=== PATIENT | female | born 1995 | race Caucasian/White ===

== ENCOUNTER 2022-08-25 06:07 | Observation (INO) | payer BC, SELFPAY ==
[2022-08-25] VITALS (12 sets, daily range): BP systolic 103–120; BP diastolic 71–85; PULSE 65–93
--- NOTE | ~2022-08-25 | US_ITS ---
EXAMINATION: US OB limited DATE: 08/25/2022 07:47 INDICATION: Vaginal bleeding during third trimester TECHNIQUE: Real-time ultrasound of the pelvis was performed. The interpreting radiologist was not pre sent for the study. COMPARISON: None. FINDINGS: There is a single living fetus in vertex presentation. The placenta is anterior. There are multiple hypoechoic areas within the placenta which measure up to 15 mm. The cervical length is 3.9 c m. cardiac activity and movement are noted. heart rate is 131 beats per minute (bpm ). The amniotic fluid index is subjectively normal. IMPRESSION: 1. Single living fetus in vertex presentation. 2. Hypoechoic areas in the placenta which likely reflect venous lakes. Reviewed, dictated and finalized at location [facility]
--- NOTE | 2022-08-25 08:38 | PM.OBTRLD ---
OB - Triage/Final Diagnosis Visit Information Date of evaluation: 08/25/22 Reason for evaluation: other (bleeding) Comments/Additional reasons for admission: I have assessed the risk for this patient, Celi Harmon, and determined that she would benefit from observation care. Evaluation Vital signs: Vital Signs - 24 hr 08/25/22 07:00 08/25/22 07:15 08/25/22 07:30 Pulse Rate 84 75 93 Blood Pressure 103/71 108/82 112/82 08/25/22 07:45 08/25/22 08:00 08/25/22 08:15 Pulse Rate 67 67 74 Blood Pressure 116/85 116/80 104/82 08/25/22 08:30 Pulse Rate 73 Blood Pressure 110/81
--- NOTE | 2022-08-25 13:53 | OBADM ---
This patient, Celi Harmon, admitted to the OB room Labor/Delivery/Recovery 108 for observation. Patient/family oriented to hospital policies and general routines including ID bracelet, bed and alarms, visiting hours, pain management, procedures, bathroom and other care routines, personal items, smoking policy, room service/diet, and visiting hours. Patient/Family are encouraged to report perceived risks to care and to ask questions if they do not understand what they are told or what they should do.
== END 2022-08-25 10:29 | disposition home or self-care (01) ==
PROVIDERS: Admitting Provider Obstetrics & Gynecology; Visit Provider Obstetrics & Gynecology
DX: O46.93 Antepartum hemorrhage, unspecified, third trimester (principal); Z3A.00 Weeks of gestation of pregnancy not specified
CPT/HCPCS: 76815; G0378; G0379

== ENCOUNTER 2022-08-25 17:40 | Inpatient (IN) | payer BC, SELFPAY ==
[2022-08-25] VITALS (49 sets, daily range): BP systolic 117–138; BP diastolic 70–103; PULSE 58–90; RESP 14–18; TEMP 36.4–36.6; O2SAT 97–100; BMI 28.6
--- NOTE | 2022-08-25 17:47 | PC.NURSE ---
Dr. Nayeli Jorgensen notified of pt heart tones in the s. en route.
--- NOTE | 2022-08-25 17:49 | PC.NURSE ---
Anesthesia notified of pt bleeding. Requesting presents on the unit.
[2022-08-25] MEDS: LACTATED RINGERS 250 ML 999 ML IVPB (17:51)
[2022-08-25 18:09] LABS: Basophils Percent Auto 0.3 % (0.2-1.2); Eosinophils Absolute Auto 0.1 K/mm3 (0-0.3); Eosinophils Percent Auto 1.3 % (0-4.4); Hematocrit 34.7 % (37.0-47.0); Hemoglobin 11.4 g/dL (12.0-15.0); Immature Granulocyte Absolute 0.04 K/mm3 (0.00-0.031); Immature Granulocyte Percent A 0.5 % (0-0.5); Lymphocytes Absolute Auto 1.84 K/mm3 (0.9-3.2); Lymphocytes Percent Auto 21.3 % (18.3-44.2); Mean Corpuscular HGB Conc 32.9 g/dl (32-36); Mean Corpuscular Volume 88.3 fl (80-100); Mean Platelet Volume 11.4 fl (7.4-10.4); Monocytes Absolute Auto 0.8 K/mm3 (0.1-0.6); Monocytes Percent Auto 9.7 % (2.6-8.5); Neutrophils Absolute Auto 5.8 K/mm3 (1.3-6.7); Neutrophils Percent Auto 66.9 % (45.5-73.1); Platelet Count Result 272 k/mm3 (150-375); Red Blood Count 3.93 M/mm3 (4.2-5.4); Red Cell Distribution Width 14.4 % (11.5-14.5); White Blood Count 8.6 K/mm3 (4.5-10.0)
--- NOTE | 2022-08-25 18:58 | P.HP_ITS ---
H&P: HPI History of Present Illness Date/Time: 08/25/22 18:58 Chief Complaint: Bleeding and contractions Narrative: this is 27 year 1 para 0 whose last menstrual period was 11/22/2021, EDC is 08/29/2022, presents at 39 weeks gestation with bleeding she was seen earlier with some spotting. She had reassuring heart tones the bleeding stops she had had sex relations the evening before. Ultrasound showed the baby to be vertex with the ultrasound sound showing no evidence of abruption and or other abnormalities. She was watched for several hours with reassuring heart tones and sent home she returned here and heart tones were found to be nonreassuring and I was called urgently. She was taken back to the back as I was driving in. IV fluids oxygen were given. [facility] Family History Family History Grandparent Diabetes mellitus Grandparent Diabetes mellitus Father Colon cancer Social History Social History Smoking status: Never smoker Alcohol intake: never Substance use: never Spiritual care concerns: No Meds Home Medications and Allergies Allergies Allergy/AdvReac Type Severity Reaction Status Date / Time No Known Allergies Allergy Verified 08/15/22 15:17 Vital Signs Vital Signs - 24 hr 08/25/22 17:49 08/25/22 17:50 08/25/22 17:55 Pulse Rate 67 Blood Pressure 138/87 Pulse Oximetry 100 100 Exam Const: General: comfortable, acute distress and well groomed Orientation/consciousness: oriented to person, oriented to place and oriented to time Chest: Chest palpation & inspection: normal inspection of the chest Cardio: Rate: regular rate Rhythm: regular rhythm Heart sounds: S1 normal heart sound present and S2 normal heart sound present GI: Inspection: normal to inspection ( The uterus is soft and gravid) : Speculum Exam - Vagina: normal appearance of the vagina and vaginal bleeding ( light vaginal bleeding seen. heart tones in the 70s and emergent C-) H&P: Results Labs Labs: Short CBC 08/25/22 Range/Units 17:59 WBC 8.6 (4.5-10.0) K/mm3 Hgb 11.4 L (12.0-15.0) g/dL Hct 34.7 L (37.0-47.0) % Plt Count 272 (150-375) k/mm3 Assessment and Plan Assessment and plan (1) Term : Code(s): Z34.90 - Encounter for supervision of normal , unspecified, unspecified trimester Status: Acute (2) Non-reassuring heart tones complicating , antepartum: Code(s): O36.8390 - Maternal care for abnormalities of the heart rate or rhythm, unspecified trimester, not applicable or unspecified Status: Acute (3) Bleeding: Code(s): R58 - Hemorrhage, not elsewhere classified Status: Acute Plan emergent section. The patient is typed and screened and prepared for transfusion. Peds was Called.
--- NOTE | 2022-08-25 19:13 | W.PM.PROC2 ---
Procedure Note - Detailed Date of Procedure 08/25/22 Pre-op Diagnosis Bleeding term / nonreassuring heart tones Post-op Diagnosis Same Procedure Performed emergent low-transverse section Surgeon Raphael Jorgensen MD Anesthesia General Indications a 27-year-old 1 para 0 at 39 weeks who was admitted with some bleeding and nonreassuring heart tones Findings male breech normal delivery and amniotic fluid anterior placenta with minimal blood present in the placenta. Nuchal cord loose x1 Description of Procedure the patient was admitted with vaginal bleeding and heart tones were in the 90s which dropped immediately to the 70s. I was not present in the hospital and was called emergently. Immediate resuscitation with fluids and oxygen was undertaken. An emergent was called. Upon my arrival patient was prepped draped placed in the supine position. Under excellent general is Anesthesia and was entered in Pfannenstiel fashion wrist layers of fascia fascia incised midline upward outward fashion. Underlying muscles per sharply dissected prior peritoneum L by Angela clamp. The peritoneum was entered by sharp dissection carried superiorly and inferiorly dome bladder bladder blade was placed bladder flap formed. A low-transverse incision made and a large amount of clear fluid was seen. The was noted to be in the ana breech position and was Prieb delivered the breech 1st the legs flexed to the midline the arms flexed medially and the head delivered and the flexed position. Cord clamped x2 and cut immediately passed off the table placenta delivered intact manually and uterus with the abdomen wrapped in moist towel. The placenta did not look abnormal. And once the uterus was cleared any membranes or debris, uterus closed with continuous running Vicryl from edge to edge. Cyst followed by imbricating layer from edge to edge hemostasis was assured uterus ovaries and tubes appeared within normal limits a small 1cm fibroid was seen at the fundus. The uterus returned to the abdomen blood loss quantified. Laps removed and accounted for after inspecting the incision last time. Incisions on the fascia closed with continuous running 0 Vicryl from lateral edge to midline bilaterally skin closed with 4 Monocryl and glue. Blood loss was in the 400cc range although this was difficult due to the large amount of amniotic fluid. All sponge, needle, instrument counts were correct. The baby was undergoing resuscitation during the time of closure. Estimated Blood Loss 355 Urine Output 300 Drains No Packing No Pathology Yes ( Placenta) Complications No immediate complications Condition Stable Disposition PACU
[2022-08-25 19:14] LABS: Basophils Percent Auto 0.3 % (0.2-1.2); Eosinophils Absolute Auto 0.1 K/mm3 (0-0.3); Eosinophils Percent Auto 0.9 % (0-4.4); Hematocrit 32.9 % (37.0-47.0); Hemoglobin 10.6 g/dL (12.0-15.0); Immature Granulocyte Absolute 0.07 K/mm3 (0.00-0.031); Immature Granulocyte Percent A 0.8 % (0-0.5); Lymphocytes Absolute Auto 1.97 K/mm3 (0.9-3.2); Lymphocytes Percent Auto 21.6 % (18.3-44.2); Mean Corpuscular HGB Conc 32.2 g/dl (32-36); Mean Corpuscular Hemoglobin 28.4 pg (26-34); Mean Corpuscular Volume 88.2 fl (80-100); Mean Platelet Volume 11.1 fl (7.4-10.4); Monocytes Absolute Auto 0.8 K/mm3 (0.1-0.6); Monocytes Percent Auto 8.3 % (2.6-8.5); Neutrophils Absolute Auto 6.2 K/mm3 (1.3-6.7); Neutrophils Percent Auto 68.1 % (45.5-73.1); Platelet Count Result 219 k/mm3 (150-375); Red Blood Count 3.73 M/mm3 (4.2-5.4); Red Cell Distribution Width 14.5 % (11.5-14.5); White Blood Count 9.1 K/mm3 (4.5-10.0)
--- NOTE | 2022-08-25 19:30 | WPDANESEPPF ---
Anes - Initial Pre Proc Eval Procedure: Operation Date: 08/25/22 18:00 Proposed Procedures p Section - Raphael Jorgensen MD Date/Time: 08/25/22 19:30 Surgeon: Hair Cox MD Pre Op Diagnosis: Non reassuring FHT Pre Op Diagnosis: Bleeding Patient Data Age: 27 Gender: F Height: Weight: Last Vital Signs Pulse 74 08/25/22 19:16 BP 121/75 08/25/22 19:16 Pulse Ox 99 08/25/22 19:29 Allergies Allergy/AdvReac Type Severity Reaction Status Date / Time No Known Allergies Allergy Verified 08/15/22 15:17 Laboratory Tests 08/25/22 08/25/22 08/25/22 17:59 17:59 17:59 WBC 8.6 K/mm3 K/mm3 (4.5-10.0) RBC 3.93 M/mm3 L M/mm3 (4.2-5.4) Hgb 11.4 g/dL L g/dL (12.0-15.0) Hct 34.7 % L % (37.0-47.0) MCV 88.3 fl fl (80-100) MCH 29.0 pg pg (26-34) MCHC 32.9 g/dl g/dl (32-36) RDW 14.4 % % (11.5-14.5) Plt Count 272 k/mm3 k/mm3 (150-375) MPV 11.4 fl H fl (7.4-10.4) Immature Gran % (Auto) 0.5 % % (0-0.5) Neut % (Auto) 66.9 % % (45.5-73.1) Lymph % (Auto) 21.3 % % (18.3-44.2) [place] % (Auto) 9.7 % H % (2.6-8.5) Eos % (Auto) 1.3 % % (0-4.4) Baso % (Auto) 0.3 % % (0.2-1.2) Lymph # (Auto) 1.84 K/mm3 K/mm3 (0.9-3.2) [place] # (Auto) 0.8 K/mm3 H K/mm3 (0.1-0.6) Eos # (Auto) 0.1 K/mm3 K/mm3 (0-0.3) Baso # (Auto) 0.0 K/mm3 K/mm3 (0.0-0.1) Abs Immat Gran (auto) 0.04 K/mm3 H K/mm3 (0.00-0.031) Absolute Neuts (auto) 5.8 K/mm3 K/mm3 (1.3-6.7) Absolute Nucleated RBC 0.0 K/mm3 K/mm3 (0.0-0.012) Nucleated RBC % 0.0 % % (0.0-0.2) RPR Pending Blood Type O Positive Antibody Screen Negative 08/25/22 08/25/22 17:59 19:04 WBC 9.1 K/mm3 K/mm3 (4.5-10.0) RBC 3.73 M/mm3 L M/mm3 (4.2-5.4) Hgb 10.6 g/dL L g/dL (12.0-15.0) Hct 32.9 % L % (37.0-47.0) MCV 88.2 fl fl (80-100) MCH 28.4 pg pg (26-34) MCHC 32.2 g/dl g/dl (32-36) RDW 14.5 % % (11.5-14.5) Plt Count 219 k/mm3 k/mm3 (150-375) MPV 11.1 fl H fl (7.4-10.4) Immature Gran % (Auto) 0.8 % H % (0-0.5) Neut % (Auto) 68.1 % % (45.5-73.1) Lymph % (Auto) 21.6 % % (18.3-44.2) [place] % (Auto) 8.3 % % (2.6-8.5) Eos % (Auto) 0.9 % % (0-4.4) Baso % (Auto) 0.3 % % (0.2-1.2) Lymph # (Auto) 1.97 K/mm3 K/mm3 (0.9-3.2) [place] # (Auto) 0.8 K/mm3 H K/mm3 (0.1-0.6) Eos # (Auto) 0.1 K/mm3 K/mm3 (0-0.3) Baso # (Auto) 0.0 K/mm3 K/mm3 (0.0-0.1) Abs Immat Gran (auto) 0.07 K/mm3 H K/mm3 (0.00-0.031) Absolute Neuts (auto) 6.2 K/mm3 K/mm3 (1.3-6.7) Absolute Nucleated RBC 0.0 K/mm3 K/mm3 (0.0-0.012) Nucleated RBC % 0.0 % % (0.0-0.2) RPR Blood Type Cancelled Antibody Screen Cancelled Patient hx anesthesia problems: none Family hx anesthesia problems: none Prior surgeries: None Results Review: All pre-operative results and documents have been reviewed as part of the pre-operative evaluation. [facility] Family History Family History Grandparent Diabetes mellitus Grandparent Diabetes mellitus Father Colon cancer Social History Social History Smoking status: Never smoker Alcohol intake: never Substance use: never Spiritual care concerns: No Anes - Eval Final PreProcedure Day of Procedure 08/25/22 19:30 Patient weight: normal Heart: regular rate and rhythm Lungs: clear to auscultation Airway: Mallampati scale class 1 Neurological: alert and oriented Last oral intake: 4 hours ASA classification: I Em
--- NOTE | 2022-08-25 19:47 | LDADM ---
This patient, Celi Harmon, was admitted to Labor/Delivery/Recovery 107 on 08/25/22 at 17:40. Plans for labor, pain management and were discussed with patient. Patient/family oriented to hospital policies and general routines including ID bracelet, bed and alarms, visiting hours, pain management, procedures, bathroom and other care routines, personal items, smoking policy, room service/diet and guest tray routines, infant security routines, and visiting hours. Patient/Family are encouraged to report perceived risks to care and to ask questions if they do not understand what they are told or what they should do. See OBIX for further documentation.
[2022-08-25] MEDS: OXYTOCIN 30 UNITS/NS 500 ML 30 UNITS/500 ML BAG 125 UNITS IV CONT (20:15)
[2022-08-25] MEDS: MORPHINE SULFATE PCA (*CRX) 30 MG/30 ML SYR IV CONT ×2 (21:02→22:21)
--- NOTE | 2022-08-25 21:35 | OBPPTRN ---
Patient transferred to post room #281 via stretcher. Support person present. Oriented to unit, room, information board, rooming in, admission packet and security measures. Patient verbalizes understanding.
--- NOTE | 2022-08-25 22:21 | PC.NURSE ---
Morphine DISMANTLER order accidentally cancelled upon transfer of orders to unit. New DISMANTLER order entered, same morphine DISMANTLER syringe running that was started down in labor and delivery.
[2022-08-26] VITALS (14 sets, daily range): BP systolic 58–117; BP diastolic 36–79; PULSE 66–87; RESP 16–18; TEMP 36.7–37.2; O2SAT 97–100
[2022-08-26] MEDS: DEXTROSE 5%/0.45% SOD CHL 1,000 ML 125 ML IV CONT ×2 (04:30→20:52)
[2022-08-26 06:19] LABS: Basophils Percent Auto 0.2 % (0.2-1.2); Eosinophils Percent Auto 0.1 % (0-4.4); Hematocrit 31.5 % (37.0-47.0); Hemoglobin 10.3 g/dL (12.0-15.0); Immature Granulocyte Absolute 0.08 K/mm3 (0.00-0.031); Immature Granulocyte Percent A 0.5 % (0-0.5); Lymphocytes Absolute Auto 1.32 K/mm3 (0.9-3.2); Lymphocytes Percent Auto 7.8 % (18.3-44.2); Mean Corpuscular HGB Conc 32.7 g/dl (32-36); Mean Corpuscular Hemoglobin 28.2 pg (26-34); Mean Corpuscular Volume 86.3 fl (80-100); Mean Platelet Volume 11.5 fl (7.4-10.4); Monocytes Percent Auto 5.9 % (2.6-8.5); Neutrophils Absolute Auto 14.6 K/mm3 (1.3-6.7); Neutrophils Percent Auto 85.5 % (45.5-73.1); Platelet Count Result 234 k/mm3 (150-375); Red Blood Count 3.65 M/mm3 (4.2-5.4); Red Cell Distribution Width 14.3 % (11.5-14.5)
--- NOTE | 2022-08-26 07:24 | PM.OBPNVD ---
OB - PN: Subj Subjective Date/time seen: 08/26/22 07:24 Patient comments: no complaints and pain well controlled baby status: doing well OB - PN: Obj Data Labs 08/26/22 04:53 Labs: Laboratory Results - last 24 hr 08/25/22 08/25/22 08/25/22 17:59 17:59 17:59 WBC 8.6 RBC 3.93 L Hgb 11.4 L Hct 34.7 L MCV 88.3 MCH 29.0 MCHC 32.9 RDW 14.4 Plt Count 272 MPV 11.4 H Immature Gran % (Auto) 0.5 Neut % (Auto) 66.9 Lymph % (Auto) 21.3 [place] % (Auto) 9.7 H Eos % (Auto) 1.3 Baso % (Auto) 0.3 Lymph # (Auto) 1.84 [place] # (Auto) 0.8 H Eos # (Auto) 0.1 Baso # (Auto) 0.0 Abs Immat Gran (auto) 0.04 H Absolute Neuts (auto) 5.8 Absolute Nucleated RBC 0.0 Nucleated RBC % 0.0 Blood Type O Positive Cancelled Antibody Screen Negative Cancelled 08/25/22 08/26/22 19:04 04:53 WBC 9.1 17.0 H RBC 3.73 L 3.65 L Hgb 10.6 L 10.3 L Hct 32.9 L 31.5 L MCV 88.2 86.3 MCH 28.4 28.2 MCHC 32.2 32.7 RDW 14.5 14.3 Plt Count 219 234 MPV 11.1 H 11.5 H Immature Gran % (Auto) 0.8 H 0.5 Neut % (Auto) 68.1 85.5 H Lymph % (Auto) 21.6 7.8 L [place] % (Auto) 8.3 5.9 Eos % (Auto) 0.9 0.1 Baso % (Auto) 0.3 0.2 Lymph # (Auto) 1.97 1.32 [place] # (Auto) 0.8 H 1.0 H Eos # (Auto) 0.1 0.0 Baso # (Auto) 0.0 0.0 Abs Immat Gran (auto) 0.07 H 0.08 H Absolute Neuts (auto) 6.2 14.6 H Absolute Nucleated RBC 0.0 0.0 Nucleated RBC % 0.0 0.0 Blood Type Antibody Screen OB - PN A/P Plan day: 1 Plan: routine care Time Spent With Patient Time: Total time spent is greater than 50% in coordination of care (as documented) at patient's floor/unit and/or counseling patient: Time with patient: less than 15 minutes Exam Const: General: cooperative, healthy appearing and comfortable Orientation/consciousness: oriented to person, oriented to place and oriented to time Resp: Effort & Inspection: normal respiratory effort
[2022-08-26] MEDS: DOCUSATE SODIUM 100 MG CAPSULE PO (11:26)
[2022-08-26] MEDS: SIMETHICONE 80 MG TAB.CHEW PO ×2 (11:26→15:39)
[2022-08-26] MEDS: HYDROcodone/acetaminophen (*CRX) 10-325 MG TABLET 1 TAB PO ×2 (11:26→15:39)
[2022-08-26] MEDS: BISACODYL 10 MG SUPPOSITORY RECTAL (11:27)
[2022-08-26] MEDS: KCL 20 MEQ/D5/0.45% SOD CHL 1,000 ML 125 ML IV CONT (13:15)
--- NOTE | 2022-08-26 13:54 | PC.NURSE ---
1300 Patient up to the chair with 3 RN's @ bedside (Efren Vazquez, Linda Rogers) 1306 Patient feeling dizzy, ears ringing, nauseous, pale. Cool rag applied to back of neck and ammonia salts used. BP 58/36, pulse 76 1312 Patient feeling better, symptoms improved. Patient back to bed. BP 103/58, pulse 87 1315 IV fluids restarted (D5 1/2 NS w/ KCl @ 125). Pt doing well. 1330 Patient feeling better, no nausea and wants to eat her lunch. Pain OK. BP 100/62, pulse 68 1343 LM on Dolos[employer] voicemail to update him on patient.
[2022-08-26] MEDS: IBUPROFEN SUSPENSION 200 MG/10 ML UDC 600 MG PO (15:39)
--- NOTE | 2022-08-26 18:27 | PC.NURSE ---
1754 Patient had been up in a chair since 1734, was doing well and then started to feel nauseous and looking pale. Moved her back to bed. Will notify
[2022-08-26 18:41] LABS: Hematocrit 31.5 % (37.0-47.0)
[2022-08-27] MEDS: HYDROcodone/acetaminophen (*CRX) 5-325 MG TABLET 1 TAB PO ×3 (00:59→16:34)
[2022-08-27] MEDS: IBUPROFEN SUSPENSION 200 MG/10 ML UDC 600 MG PO ×2 (00:59→09:14)
[2022-08-27] MEDS: SIMETHICONE 80 MG TAB.CHEW PO (00:59)
[2022-08-27] MEDS: ONDANSETRON INJ 4 MG/2 ML VIAL IV PUSH (01:08)
[2022-08-27 04:30] VITALS: BP 105/71; PULSE 72; RESP 18; O2SAT 98
[2022-08-27 05:43] LABS: Basophils Percent Auto 0.3 % (0.2-1.2); Eosinophils Percent Auto 0.1 % (0-4.4); Hematocrit 31.2 % (37.0-47.0); Hemoglobin 9.8 g/dL (12.0-15.0); Immature Granulocyte Absolute 0.08 K/mm3 (0.00-0.031); Immature Granulocyte Percent A 0.5 % (0-0.5); Lymphocytes Absolute Auto 1.19 K/mm3 (0.9-3.2); Lymphocytes Percent Auto 7.6 % (18.3-44.2); Mean Corpuscular HGB Conc 31.4 g/dl (32-36); Mean Corpuscular Hemoglobin 27.9 pg (26-34); Mean Corpuscular Volume 88.9 fl (80-100); Mean Platelet Volume 11.3 fl (7.4-10.4); Monocytes Absolute Auto 0.8 K/mm3 (0.1-0.6); Monocytes Percent Auto 5.2 % (2.6-8.5); Neutrophils Absolute Auto 13.5 K/mm3 (1.3-6.7); Neutrophils Percent Auto 86.3 % (45.5-73.1); Platelet Count Result 260 k/mm3 (150-375); Red Blood Count 3.51 M/mm3 (4.2-5.4); Red Cell Distribution Width 14.9 % (11.5-14.5); White Blood Count 15.7 K/mm3 (4.5-10.0)
[2022-08-27 07:30] VITALS: BP 94/62; PULSE 84; RESP 16; TEMP 37.1; O2SAT 100
--- NOTE | 2022-08-27 07:39 | P.PNOB_ITS ---
OB - PN: Subj Subjective Date/time seen: 08/27/22 07:39 Interval history: was light headed Patient comments: no complaints and pain well controlled OB - PN: Obj Data Labs 08/27/22 04:32 Labs: Laboratory Results - last 24 hr 08/26/22 08/27/22 18:29 04:32 WBC 15.7 H RBC 3.51 L Hgb 10.0 L 9.8 L Hct 31.5 L 31.2 L MCV 88.9 MCH 27.9 MCHC 31.4 L RDW 14.9 H Plt Count 260 MPV 11.3 H Immature Gran % (Auto) 0.5 Neut % (Auto) 86.3 H Lymph % (Auto) 7.6 L [place] % (Auto) 5.2 Eos % (Auto) 0.1 Baso % (Auto) 0.3 Lymph # (Auto) 1.19 [place] # (Auto) 0.8 H Eos # (Auto) 0.0 Baso # (Auto) 0.0 Abs Immat Gran (auto) 0.08 H Absolute Neuts (auto) 13.5 H Absolute Nucleated RBC 0.0 Nucleated RBC % 0.0 OB - PN A/P Plan day: 2 Plan: routine care Comments: pass to see baby Time Spent With Patient Time: Total time spent is greater than 50% in coordination of care (as documented) at patient's floor/unit and/or counseling patient: Time with patient: less than 15 minutes Exam Const: General: cooperative, healthy appearing and comfortable Nutritional Appearance: average body habitus Orientation/consciousness: oriented to person, oriented to place and oriented to time Resp: Effort & Inspection: normal respiratory effort Cardio: Rate: regular rate Rhythm: regular rhythm Heart sounds: S1 normal heart sound present and S2 normal heart sound present GI: Inspection: normal to inspection and incision (cdi)
[2022-08-27] MEDS: DOCUSATE SODIUM 100 MG CAPSULE PO ×2 (08:25→16:34)
[2022-08-27] MEDS: POLYSACCHARIDE IRON COMPLEX 150 MG CAPSULE PO ×2 (08:25→16:35)
[2022-08-27 09:16] LABS: Rapid Plasma Reagin Non-Reactive (NonReactive)
--- NOTE | 2022-08-27 10:40 | PC.NURSE ---
Pt. left on pass to visit baby.
[2022-08-27 14:30] VITALS: BP 117/76; PULSE 78; RESP 16; TEMP 36.8; O2SAT 99
[2022-08-27 20:26] VITALS: PULSE 70; RESP 18; O2SAT 99
[2022-08-28] MEDS: HYDROcodone/acetaminophen (*CRX) 5-325 MG TABLET 1 TAB PO (07:45)
[2022-08-28] MEDS: POLYSACCHARIDE IRON COMPLEX 150 MG CAPSULE PO (07:45)
[2022-08-28] MEDS: DOCUSATE SODIUM 100 MG CAPSULE PO (07:45)
[2022-08-28] MEDS: TETANUS,DIPHTHERIA,AC PERTUSSIS ADULT (0.5 ML) BOOSTRIX IM (07:46)
--- NOTE | 2022-08-28 07:55 | P.DS_ITS ---
DS: Admitting Diagnosis Discharge Date 08/28/2022 Admitting Diagnosis Term with distress DS: Discharge Diagnosis Discharge Diagnosis (1) Bleeding: Code(s): R58 - Hemorrhage, not elsewhere classified Status: Acute (2) Non-reassuring heart tones complicating , antepartum: Code(s): O36.8390 - Maternal care for abnormalities of the heart rate or rhythm, unspecified trimester, not applicable or unspecified Status: Acute (3) Term : Code(s): Z34.90 - Encounter for supervision of normal , unspecified, unspecified trimester Status: Acute DS: Summary Hospital Course Reason for hospitalization: Vaginal bleeding and labor at term Hospital Course: A 27-year-old female who was admitted at 39. weeks gestation with bleeding. heart tones were noted to be low and immediate section was called. She underwent emergent low-transverse section. The baby was resuscitated and transferred to [facility]. Her hospital course was unremarkable. She remained afebrile. She was up, voiding without difficulty, ambulating, generally without complaints. Time Spent with Patient Time attestation: Total time spent providing and/or coordinating discharge services: Exam Const: General: cooperative, healthy appearing and comfortable Nutritional Appearance: average body habitus Orientation/consciousness: oriented to person, oriented to place and oriented to time HENMT: Head: normal to inspection Resp: Effort & Inspection: normal respiratory effort GI: Inspection: normal to inspection and incision (Wound is clean dry and intact) DS: Data Data Completed and Pending Labs on day of discharge: Labs from last 24 hours 08/25/22 17:59 RPR Non-reactive Discharge Plan Discharge Attending physician on discharge: Raphael Patel Discharging Clinician: Raphael Patel Patient Disposition: Home, Self-Care Activity: may shower, no straining and pelvic rest Diet: heart healthy Wound Care Instructions: follow printed instructions Patient Instructions: Antibiotic Form Stand Alone Forms: General Discharge Information Follow-up/Referrals: Raphael Patel MD [Physician] - Discharge Medications: New hydrocodone-acetaminophen 5-325 mg tablet 1 tablet PO Q4H PRN (Reason: pain) Qty: 20 0RF Date of admission: 08/25/22 17:40 Primary Care Provider: PHYSICIAN,[employer]PERVISOR Admitting Provider: Hair Cox Attending physician on admission: Hair Cox Condition: Stable
[2022-08-28 08:00] VITALS: BP 117/85; PULSE 87; RESP 16; TEMP 36.7; O2SAT 100
--- NOTE | 2022-08-28 08:00 | PM.OBPNVD ---
OB - PN: Subj Subjective Date/time seen: 08/28/22 08:00 Interval history: was light headed Patient comments: no complaints, pain well controlled and other (Appears emotionally stable) OB - PN: Obj Data Labs 08/27/22 04:32 Labs: Laboratory Results - last 24 hr 08/25/22 17:59 RPR Non-reactive OB - PN A/P Plan day: 3 Plan: routine care, discharge home and follow up 6 weeks (One week) Time Spent With Patient Time: Total time spent is greater than 50% in coordination of care (as documented) at patient's floor/unit and/or counseling patient: Time with patient: less than 15 minutes
--- NOTE | 2022-08-28 11:51 | PC.NURSE ---
Patient viewed the discharge video Mother & Baby Care, The First Two Weeks . Patient was given the opportunity and encouraged to ask questions. Patient verbalized understanding of information shared and has been given the mother/baby guide for home reference.
== END 2022-08-28 12:30 | disposition home or self-care (01) | DRG 788 ==
LOC: ANHOB2 08-28 11:59 → ANHLDR 08-29 10:59 → ANHOB2 08-29 10:59
PROVIDERS: Admitting Provider Obstetrics & Gynecology; Visit Provider Obstetrics & Gynecology
PROC: 10D00Z1 Extraction of Products of Conception, Low, Open Approach (ICD-10-PCS; CPT 59514; principal; 2022-08-25 18:00)
DX: O76 Abnormality in fetal heart rate and rhythm complicating labor and delivery (principal); O67.8 Other intrapartum hemorrhage; O69.81X0 Labor and delivery complicated by cord around neck, without compression, not applicable or unspecified; O32.1XX0 Maternal care for breech presentation, not applicable or unspecified; Z3A.39 39 weeks gestation of pregnancy; Z37.0 Single live birth; Z23 Encounter for immunization
CPT/HCPCS: 36415; 85014; 85018; 85025; 86592; 86850; 86900; 86901; 90471; 90686; 90715; A9270; G0008; J0690; J2210; J2250; J2270; J2274; J2405; J2590; J3010; J3480; J7120

== ENCOUNTER 2024-06-23 16:38 | Outpatient (CLI) | payer BC, SELFPAY ==
[2024-06-23 17:03] VITALS: BP 109/67; PULSE 88
[2024-06-23 17:04] VITALS: BP 109/67; PULSE 80; RESP 16; TEMP 36.8
[2024-06-23 17:15] VITALS: BP 98/59; PULSE 82
--- NOTE | 2024-06-23 17:27 | PC.NURSE ---
Dr. Cox returned page and informed this 24 wk pt c/o sitting down on toilet and having a gush of fluid before releasing her urine and it felt different from when she purposefully voided. ROM plus was negative. No vaginal bleeding, no contractions, FHT's reactive with 15 beat accels. OK to discharge to home.
[2024-06-23 17:28] VITALS: BP 98/59; PULSE 83
[2024-06-23 18:09] LABS: OBXCEM ROM Plus Negative (Negative)
== END 2024-06-23 17:32 | disposition home or self-care (01) ==
LOC: ANHOBOP 16:49 → ANHOBPP 16:49
PROVIDERS: Visit Provider Obstetrics & Gynecology
DX: O42.90 Premature rupture of membranes, unspecified as to length of time between rupture and onset of labor, unspecified weeks of gestation (principal); Z3A.00 Weeks of gestation of pregnancy not specified
CPT/HCPCS: 59025; 84112; 99199

== ENCOUNTER 2024-10-01 12:41 | Outpatient (RCR) | payer BC, SELFPAY ==
[2024-10-01 14:00] VITALS: BP 110/72; PULSE 85
== END 2024-11-06 16:45 | disposition home or self-care (01) ==
LOC: ANHOBOP 12:41
PROVIDERS: Visit Provider Obstetrics & Gynecology
DX: O36.8190 Decreased fetal movements, unspecified trimester, not applicable or unspecified (principal)
CPT/HCPCS: 59025

== ENCOUNTER 2024-10-05 09:49 | Inpatient (IN) | payer BC, SELFPAY ==
[2024-10-05] VITALS (54 sets, daily range): BP systolic 81–114; BP diastolic 56–80; PULSE 63–119; RESP 16–18; TEMP 36.2–36.4; O2SAT 97–100
[2024-10-05] MEDS: ACETAMINOPHEN 500 MG TABLET 1000 MG PO (10:33)
[2024-10-05] MEDS: LACTATED RINGERS 1,000 ML 125 ML IV CONT ×2 (10:45→11:33)
--- NOTE | 2024-10-05 10:47 | LDADM ---
This patient, Celi Harmon, was admitted to Labor/Delivery/Recovery 120 on 10/05/24 at 09:49. Plans for labor, pain management and were discussed with patient. Patient/family oriented to hospital policies and general routines including ID bracelet, bed and alarms, visiting hours, pain management, procedures, bathroom and other care routines, personal items, smoking policy, room service/diet and guest tray routines, infant security routines, and visiting hours. Patient/Family are encouraged to report perceived risks to care and to ask questions if they do not understand what they are told or what they should do. See OBIX for further documentation.
[2024-10-05] MEDS: ONDANSETRON INJ 4 MG/2 ML VIAL IV PUSH (11:33)
[2024-10-05] MEDS: FAMOTIDINE 20 MG/2 ML VIAL IV PUSH (11:34)
--- NOTE | 2024-10-05 11:35 | PM.IMHP ---
H&P: HPI History of Present Illness Date/Time: 10/05/24 11:35 Chief Complaint: Scheduled c section Narrative: 29 y/o at 39 2/7 weeks gestation with prior , desiring repeat. Also desires permanent contraception with tubal sterilization. GBS neg. Review of Systems Review of Systems: All systems reviewed & are unremarkable except as noted in HPI and below PMFSH Past Medical History Medical History (Updated 10/05/24 @ 11:38 by Hair Cox MD) Cystic fibrosis carrier Surgical History Surgical History (Updated 10/05/24 @ 11:38 by Hair Cox MD) History of delivery Family History Family History Grandparent Diabetes mellitus Grandparent Diabetes mellitus Father Colon cancer Mother Breast cancer Grandparent Breast cancer Social History Social History Smoking status: Former smoker Second hand tobacco smoke exposure: No Alcohol intake: never Substance use: never Do You Feel Safe in your Home?: Yes Lack of Transportation: No Lack of Food: Never True Current Housing: I Have Housing Concerned About Future Housing: No Difficulty Paying Gas/Electric Bills: No Difficulty Paying for Meds: No Currently Unemployed: No Education: Master's Degree or Higher Difficulty w/ Childcare or Family Care: No Spiritual care concerns: No Meds Home Medications and Allergies Home Medications ?Medication ?Instructions ?Recorded ?Confirmed ?Type vit no.95-ferrous 1 tablet PO DAILY 06/23/24 10/01/24 History fumarate 28 mg-folic acid 800 mcg tablet () Allergies Allergy/AdvReac Type Severity Reaction Status Date / Time No Known Allergies Allergy Verified 10/01/24 15:30 Vital Signs Vital Signs - 24 hr 10/05/24 10:15 10/05/24 10:30 10/05/24 10:43 Pulse Rate 83 92 Blood Pressure 100/72 103/74 Oxygen Delivery Room Air 10/05/24 10:45 10/05/24 11:00 10/05/24 11:15 Pulse Rate 82 80 77 Blood Pressure 104/73 106/71 114/70 Oxygen Delivery 10/05/24 11:30 Pulse Rate 82 Blood Pressure 109/72 Oxygen Delivery Exam Const: Orientation/consciousness: patient oriented x3 Other: Well-developed, well-nourished female in no acute distress. Neck: Thyroid: thyroid normal Lymphatic: no lymphadenopathy noted (in neck, axilla or inguinal nodes) Resp: Effort & Inspection: normal respiratory effort Auscultation: clear to auscultation bilaterally Cardio: Rate: regular rate Rhythm: regular rhythm Heart sounds: S1 normal heart sound present and S2 normal heart sound present GI: Other: ABD: Soft, nontender, nondistended, gravid. NST reactive. TOCO: no contractions. No guarding or rebound tenderness. No hepatosplenomegaly. : General: Yes no CVA tenderness Other: Cervix closed, thick Back/Spine/Pelvis: Back: no CVA tenderness Skin: General skin exam: normal color and no rashes or lesions noted Neuro: General: patient oriented x3 Extrem: Other: Extremities: nontender with no edema Psych: Mental Status: mental status grossly normal Affect: normal affect Assessment and Plan Assessment and plan (1) History of delivery: Code(s): Z98.891 - History of uterine scar from previous surgery Status: Acute Assessment and Plan: A: IUP at 39 2/7 weeks with prior , desiring repeat. Desired sterility. P: Offered repeat with concurrent bilateral tubal sterilization. She understands there are temporary methods of contraception available to her. She understands that there are nonsurgical options as well as surgical options. She understands that tubal ligation will render her permanently sterile. She understands that there is a failure rate associated with tubal sterilization, as well as an inherent ectopic gestation risk. Furthermore, she understands risks of surgery to include risks of anesthesia, risks of pain, infection, bleeding, blood products, thromboembolic phenomena and damage to adjacent structures such as bowel, bladder, ureters, blood vessels and nerves. She understands all these risks and elects to proceed with surgery. (2) Term : Code(s): Z34.90 - Encounter for supervision of normal , unspecified, unspecified trimester Status: Acute (3) Unwanted fertility: Code(s): Z30.09 - Encounter for other general counseling and advice on contraception Status: Acute
--- NOTE | 2024-10-05 11:39 | WPDHPUPDATE1 ---
History and Physical Update Update Date/Time: 10/05/24 11:39 History and Physical has been reviewed, including an updated exam of the patient. There are NO changes in the patient's condition. Risks, benefits, and alternatives have been discussed and questions answered. Patient agrees to proceed with procedure.
[2024-10-05] MEDS: ceFAZolin 2 GM/D5W 50 ML 2 GM/50 ML BAG IVPB (11:50)
--- NOTE | 2024-10-05 11:50 | P.PNAN_ITS ---
Anes - Initial Pre Proc Eval Procedure: Operation Date: 10/05/24 12:00 Proposed Procedures p Repeat Section with Bilateral Tubal Ligation - Hair Cox MD Date/Time: 10/05/24 11:50 Surgeon: Hair Cox MD Pre Op Diagnosis: CSECTION Patient Data Age: 29 Gender: F Height: 1.63 m Weight: 79.5 kg Last Vital Signs Pulse 82 10/05/24 11:30 BP 109/72 10/05/24 11:30 O2 Del Method Room Air 10/05/24 10:43 Allergies Allergy/AdvReac Type Severity Reaction Status Date / Time No Known Allergies Allergy Verified 10/01/24 15:30 Home Medications ?Medication ?Instructions ?Recorded ?Confirmed ?Type vit no.95-ferrous 1 tablet PO DAILY 06/23/24 10/01/24 History fumarate 28 mg-folic acid 800 mcg tablet () Patient hx anesthesia problems: none Family hx anesthesia problems: none Results Review: All pre-operative results and documents have been reviewed as part of the pre- operative evaluation. [facility] Past Medical History Medical History Cystic fibrosis carrier Surgical History Surgical History History of delivery Family History Family History Grandparent Diabetes mellitus Grandparent Diabetes mellitus Father Colon cancer Mother Breast cancer Grandparent Breast cancer Social History Social History Smoking status: Former smoker Second hand tobacco smoke exposure: No Alcohol intake: never Substance use: never Do You Feel Safe in your Home?: Yes Lack of Transportation: No Lack of Food: Never True Current Housing: I Have Housing Concerned About Future Housing: No Difficulty Paying Gas/Electric Bills: No Difficulty Paying for Meds: No Currently Unemployed: No Education: Master's Degree or Higher Difficulty w/ Childcare or Family Care: No Spiritual care concerns: No Anes - Eval Final PreProcedure Day of Procedure 10/05/24 11:50 Patient weight: overweight Lungs: normal air movement Airway: Mallampati scale class II Neurological: alert and oriented Last oral intake: >/= 8 hours ASA classification: II Emergent: no Anesthetic plan: proceed Anesthesia type and monitoring: regional spinal and standard monitoring Results Review: All pre-operative results and documents have been reviewed as part of the pre- operative evaluation. Overall good health, pt had prev emergent C section for distress. Today, elective repeat C section. Informed Consent: The patient's anesthetic plan and its attendant risks and benefits were discussed with the patient/family/POA. Questions were solicited and answers provided to the satisfaction of the patient/family/POA.
--- NOTE | 2024-10-05 12:49 | P.PCNOB_ITS ---
OB - Delivery Note Procedure Delivery date: 10/05/24 Pre-op diagnosis: Previous Delivery and Other Post-op Diagnosis: Same Induction method: None Delivery monitor: External FHT and External Uterine Procedure Performed: Repeat and Other (Bilateral salpingectomies) Surgeon: Hair Cox MD Anesthesia type: Spinal Description of Procedure/Findings: The patient was taken to the operating room where she was prepared and draped in the usual sterile fashion in dorsal supine position with a leftward tilt. She received cefazolin preoperatively. Spinal anesthesia was found to be adequate. A Pfannenstiel skin incision was made along the previous scar line and was carried through to the underlying layer of the fascia. The fascia was incised in the midline and the incision was extended laterally. The fascia was dissected free of the underlying rectus muscles. The rectus muscles were in the midline. The peritoneum was identified, tented up and entered sharply. The peritoneal incision was extended superiorly and inferiorly with good visualization of the bladder. The bladder blade was placed. The vesicouterine peritoneum was identified, tented up and entered sharply. The incision was extended laterally and the bladder flap was developed. The bladder blade was replaced. The uterus was then incised sharply in a transverse fashion along the lower uterine segment. The incision was extended laterally. The 's head was delivered atraumatically to the sterile field, followed by the body. The nose and mouth were bulb suctioned. After a delay, the cord was clamped and cut. The infant was handed off the field. Cord blood was c ollected. The placenta was removed manually and was passed off the field. The uterus was exteriorized and cleared of all clots and debris. The uterine incision was reapproximated using 0 Monocryl in a running, locked fashion. Excellent hemostasis resulted as did excellent reapproximation of the normal anatomy. The left Fallopian tube was grasped with a Seaview clamp. The tube was dissected along the mesentery and amputated at the uterine serosa using the Ligasure device, excising the tube in its entirety. The right Fallopian tube was similarly identified, dissected and amputated. The uterus was returned the abdomen. The pelvis was irrigated copiously with warmed normal saline. Rigorous hemostasis was assured. The fascial layer was reapproximated using 0 Vicryl in a running fashion. The skin was closed with a running, subcuticular stitch of 4 0 Vicryl. Dermaflex was applied externally. Sponge, lap, needle and instrument counts were correct. The patient was taken to the recovery room in stable condition. The infant went to the nursery in stable condition. I was present and scrubbed the entire procedure. Specimen: Yes (Cord blood, bilateral Fallopian tubes) Estimated Blood Loss: 365 Drains: Yes (Anna) Packing: No Pathology: Yes (Bilateral Fallopian tubes) Complications: None Condition: Stable Disposition: PACU [place] Baby Date of : 10/05/24 Time of : 12:16 Gestational Age by Date: 39 Infant gender: Female Weight (pounds): 7 Weight (ounces): 8 presentation: vertex Placenta delivery description: Manual Removal and Normal Configuration Cord Vessel Description: 3 Vessels and Delayed Cord Clamping score one minute: 8 score five minutes: 10
--- NOTE | 2024-10-05 12:54 | PM.OBDSVD ---
DS: Admitting Diagnosis Discharge Date 10/07/24 Admitting Diagnosis IUP at 39 2/7 weeks Prior Desired sterility DS: Discharge Diagnosis Discharge Diagnosis (1) delivery delivered: Code(s): O82 - Encounter for delivery without indication Status: Acute (2) Unwanted fertility: Code(s): Z30.09 - Encounter for other general counseling and advice on contraception Status: Acute OB - DS: Summary OB Procedures : None OB Procedures Intrapartum: and Other (bilateral salpingectomies) OB Procedures: : None Peripartum Data Procedures: Procedures Operation Date: 10/05/24 12:00 <No data on this case meets the specified criteria> Time Spent with Patient Time attestation: Total time spent providing and/or coordinating discharge services: Discharge Plan Discharge Attending physician on discharge: Hair Cox Discharging Clinician: Hair Cox Patient Disposition: Home, Self-Care Activity: may shower, may drive after 2 weeks and pelvic rest Diet: regular Wound Care Instructions: incision open to air Discharge Instructions: Call or return if temperature above 100.4? F, increased abdominal pain, increased vaginal bleeding or any new problems. Patient Language: Georgian Stand Alone Forms: General Discharge Information Follow-up/Referrals: Hair Cox MD [Physician] - 4 Weeks Discharge Medications: New ibuprofen 600 mg tablet 600 mg PO Q6H PRN (Reason: cramps) Qty: 30 0RF ferrous sulfate 325 mg (65 mg iron) tablet 325 mg PO DAILY Qty: 30 0RF hydrocodone-acetaminophen 5-325 mg tablet 1 - 2 tablet PO Q6H PRN (Reason: pain) Qty: 30 0RF Continued PNV cmb#95-ferrous fumarate-FA [] 28 mg iron- 800 mcg Tablet 1 tablet PO DAILY Date of admission: 10/05/24 09:49 Primary Care Provider: PHYSICIAN,SHOE PULLER Admitting Provider: Hair Cox Attending physician on admission: Hair Cox Condition: Stable
[2024-10-05] MEDS: OXYTOCIN 30 UNITS/NS 500 ML 30 UNITS/500 ML BAG 125 UNITS IV CONT (15:04)
--- NOTE | 2024-10-05 15:22 | OBPPTRN ---
Patient transferred to post room #277 via Stretcher. Support person present. Oriented to unit, room, information board, rooming in, admission packet and security measures. Patient verbalizes understanding.
--- NOTE | 2024-10-05 17:23 | PC.NURSE ---
Chiara Pedraza, RN license pending, is on orientation and this RN has checked her charting and assessments.
[2024-10-05] MEDS: SIMETHICONE 80 MG TAB.CHEW PO (17:28)
[2024-10-05] MEDS: ACETAMINOPHEN 325 MG TABLET 650 MG PO ×2 (17:29→23:55)
[2024-10-05] MEDS: DOCUSATE SODIUM 100 MG CAPSULE PO (17:29)
[2024-10-05] MEDS: KETOROLAC 15 MG/ML VIAL (*BKC) IV PUSH ×2 (17:32→23:55)
[2024-10-05] MEDS: DEXTROSE 5%/0.45% SOD CHL 1,000 ML 125 ML IV CONT (19:21)
[2024-10-05] MEDS: POLYSACCHARIDE IRON COMPLEX 150 MG CAPSULE PO (19:24)
[2024-10-06] VITALS: BP 114/67; PULSE 50; RESP 18; TEMP 36.9; O2SAT 97
[2024-10-06 04:58] LABS: Basophils Percent Auto 0.3 % (0.2-1.2); Eosinophils Absolute Auto 0.1 K/mm3 (0-0.3); Eosinophils Percent Auto 0.5 % (0-4.4); Hematocrit 29.5 % (37.0-47.0); Immature Granulocyte Absolute 0.05 K/mm3 (0.00-0.031); Immature Granulocyte Percent A 0.4 % (0-0.5); Lymphocytes Absolute Auto 1.19 K/mm3 (0.9-3.2); Lymphocytes Percent Auto 10.2 % (18.3-44.2); Mean Corpuscular HGB Conc 30.5 g/dl (32-36); Mean Corpuscular Hemoglobin 25.2 pg (26-34); Mean Corpuscular Volume 82.6 fl (80-100); Mean Platelet Volume 10.3 fl (7.4-10.4); Monocytes Absolute Auto 0.7 K/mm3 (0.1-0.6); Monocytes Percent Auto 5.7 % (2.6-8.5); Neutrophils Absolute Auto 9.7 K/mm3 (1.3-6.7); Neutrophils Percent Auto 82.9 % (45.5-73.1); Platelet Count Result 293 k/mm3 (150-375); Red Blood Count 3.57 M/mm3 (4.2-5.4); White Blood Count 11.7 K/mm3 (4.5-10.0)
[2024-10-06] MEDS: ACETAMINOPHEN 325 MG TABLET 650 MG PO ×4 (05:42→23:30)
[2024-10-06] MEDS: KETOROLAC 15 MG/ML VIAL (*BKC) IV PUSH ×2 (05:42→12:07)
--- NOTE | 2024-10-06 07:29 | PC.NURSE ---
10/05/24 Xiomara Pedraza RN license pending, is on orientation. Charting has been checked.
[2024-10-06] MEDS: SIMETHICONE 80 MG TAB.CHEW PO ×3 (07:42→16:30)
[2024-10-06] MEDS: DOCUSATE SODIUM 100 MG CAPSULE PO ×2 (07:42→16:30)
[2024-10-06] MEDS: POLYSACCHARIDE IRON COMPLEX 150 MG CAPSULE PO ×2 (07:42→16:30)
[2024-10-06 08:00] VITALS: BP 109/74; PULSE 88; RESP 16; TEMP 36.8; O2SAT 98
--- NOTE | 2024-10-06 08:20 | PC.NURSE ---
Consulted with patient to assess needs related to . So far baby has been feeding well and mom isn't having any nipple pain. Encouraged understanding the benefits of responding to feeding cues, frequencies of feeding 8-12 times in 24 hours (approximately 2-3 hours), and milk production. Infant was already latched optimally to the [left] breast in [cradle] position. The infant was [able] to maintain latch without discomfort to mother. Resources used to facilitate learning were used from the mom and baby guide. Mother voiced understanding of the education shared, to call for assistance if the infant does not latch or if there is discomfort with . Reported to the Primary RN.
[2024-10-06] MEDS: TETANUS,DIPHTHERIA,AC PERTUSSIS ADULT (0.5 ML) BOOSTRIX IM (12:08)
--- NOTE | 2024-10-06 12:43 | P.PNOB_ITS ---
OB - PN: Subj Subjective Date/time seen: 10/06/24 12:43 Narrative: Pain OK. Tolerating diet. Was called to see the baby yesterday, as there was a laceration behind the left ear noted in the recovery room. The laceration was a the junction of the ear posteriorly and the scalp. It does not at all appear to be a laceration sustained at the time of hysterotomy. Rather, I suspect the ear folded and developed a superficial laceration as I reached down into the pelvis to elevate and deliver the head. At any rate, there are sutures in place now and good reapproximation of the normal anatomy is seen. Also, the parents wonder whether the laceration could have occurred from a monitor cord while moving the baby, and this is certainly possible. OB - PN: Obj Data Labs 10/06/24 03:48 Labs: Laboratory Results - last 24 hr 10/06/24 03:48 WBC 11.7 H RBC 3.57 L Hgb 9.0 L Hct 29.5 L MCV 82.6 MCH 25.2 L MCHC 30.5 L RDW 16.0 H Plt Count 293 MPV 10.3 Immature Gran % (Auto) 0.4 Neut % (Auto) 82.9 H Lymph % (Auto) 10.2 L [place] % (Auto) 5.7 Eos % (Auto) 0.5 Baso % (Auto) 0.3 Lymph # (Auto) 1.19 [place] # (Auto) 0.7 H Eos # (Auto) 0.1 Baso # (Auto) 0.0 Abs Immat Gran (auto) 0.05 H Absolute Neuts (auto) 9.7 H Absolute Nucleated RBC 0.000 Nucleated RBC % 0.0 OB - PN A/P Plan Comments: A: POD#1, doing well. P: Routine care. Reviewed the ear laceration with the patient. Exam 2 Narrative: AVSS I/O OK ABD soft, nontender, fundus firm. Incision c/d/i. EXT nontender
[2024-10-06 13:04] VITALS: BP 106/65; PULSE 80; RESP 16; TEMP 36.8; O2SAT 99
--- NOTE | 2024-10-06 14:34 | WPDANLDPN2 ---
Anes-Prog Note L&D Date/Time: 10/06/24 14:34 Comfortable throughout: section Neuraxial method: spinal Epidural/Spinal procedure site: clean & non-tender Neuro status: Neuro function grossly intact. Cardiovascular status: normal Respiratory status: normal Airway patency: baseline Mental status: baseline Post-Op hydration status: normal Vital Signs: Last Vital Signs Temp 98.2 F 10/06/24 13:04 Pulse 80 10/06/24 13:04 Resp 16 10/06/24 13:04 BP 106/65 10/06/24 13:04 Pulse Ox 99 10/06/24 13:04 O2 Del Method Room Air 10/05/24 19:30 Pain score (VAS): 0 I/O: Intake & Output 10/05/24 10/06/24 10/06/24 23:59 07:59 15:59 Intake Total 500 2340 Output Total 815 2200 850 Balance -315 140 -850 Post-procedural complaints: none Patient feedback: Patient satisfied with anesthetic care.
--- NOTE | 2024-10-06 14:35 | WPDANLDNPN2 ---
Anes-Prog Note L&D-Neuraxial Date/Time: 10/06/24 14:35 Neuraxial medications: intrathecal PF morphine Opiod-related complaints: none Patient feedback: Patient satisfied with post-operative pain management.
[2024-10-06] MEDS: LIDOCAINE 5% PATCH 1 PATCH TRANSDERM (17:35)
[2024-10-06] MEDS: IBUPROFEN 600 MG TABLET PO ×2 (17:36→23:30)
[2024-10-06 23:30] VITALS: BP 106/57; PULSE 100; RESP 18; TEMP 36.9; O2SAT 98
[2024-10-07 07:00] VITALS: BP 99/60; PULSE 84; RESP 16; TEMP 36.6; O2SAT 98
[2024-10-07] MEDS: SIMETHICONE 80 MG TAB.CHEW PO (07:03)
[2024-10-07] MEDS: DOCUSATE SODIUM 100 MG CAPSULE PO (07:05)
[2024-10-07] MEDS: POLYSACCHARIDE IRON COMPLEX 150 MG CAPSULE PO (07:05)
[2024-10-07] MEDS: IBUPROFEN 600 MG TABLET PO (07:05)
[2024-10-07] MEDS: ACETAMINOPHEN 325 MG TABLET 650 MG PO (07:06)
--- NOTE | 2024-10-07 08:20 | PC.NURSE ---
Consulted with mother concerning needs and she shared her ability to independently latch infant optimally without pain, reminded mother to try and burp baby between switching breasts and after feeding. Mother is feeding appropriately for growth of and understands stimulating infant to eat if needed. Infant has had appropriate feedings in the last 24 hours meets the outcomes for weight, output, blood sugar and jaundice at this time. Reinforced understanding of milk production, transition of milk, signs of adequate intake, transition of stool, prevention/relief of engorgement, plugged ducts, mastitis, responsive watching for feeding cues, the different methods of stimulating infant to breastfeed 1-3 hours after the start of the last feeding, community resources, and when to call a provider using the resource of the feeding sheet along with the mom and baby guide. Mother voiced understanding of the information shared, is confident to continue effectively her infant at home, when to call for assistance, denies any additional assistance or education at this time. Reported to the Primary RN.
--- NOTE | 2024-10-07 08:41 | P.PNOB_ITS ---
OB - PN: Subj Subjective Date/time seen: 10/07/24 08:41 Narrative: Pain OK. Tolerating diet. Would like to go home. OB - PN: Obj Data Labs 10/06/24 03:48 OB - PN A/P Plan day: 2 Comments: A: POD#2, doing well. P: Home to f/u 4 weeks. Exam 2 Narrative: AVSS ABD soft, nontender, fundus firm. Incision c/d/i. EXT nontender
[2024-10-08 11:21] VITALS: BP 112/72; PULSE 86; RESP 18; TEMP 36.8; O2SAT 100
== END 2024-10-07 10:20 | disposition home or self-care (01) | DRG 785 ==
LOC: ANHLDR 09:53 → ANHOB2 16:00
PROVIDERS: Admitting Provider Obstetrics & Gynecology; Visit Provider Obstetrics & Gynecology
PROC: 10D00Z1 Extraction of Products of Conception, Low, Open Approach (ICD-10-PCS; CPT 59514; principal; 2024-10-05 12:00)
DX: O34.211 Maternal care for low transverse scar from previous cesarean delivery (principal); Z37.0 Single live birth; Z3A.39 39 weeks gestation of pregnancy; Z30.2 Encounter for sterilization
CPT/HCPCS: 36415; 85025; 88302; 90715; A9270; J0690; J1885; J2274; J2371; J2405; J2590; J7120